=== PATIENT | male | born 2000 | race Caucasian/White ===

== ENCOUNTER 2019-05-06 12:10 | Emergency (ER) | payer OTHER, SELFPAY ==
[2019-05-06 12:13] VITALS: BP 133/68; PULSE 80; RESP 16; TEMP 36.8; O2SAT 98; BMI 29.5
[2019-05-06] MEDS: Diphth,Pertuss(Acell),Tet Vac 0.5 ML Vial IM (12:41)
--- NOTE | 2019-05-06 12:53 | ED.VISSUMM ---
- ER Visit Summary Date of Service: 05/06/19 Chief Complaint: [Head injury and forehead laceration] History of Present Illness: The patient is a 19 M [presents to the emergency department with head injury that occurred while at work today. Patient was using a large drill when the bit hit a nail in the wood and rotated the handle of the drill which struck him in the left temporal forehead. Patient denies loss of consciousness. He denies neck pain. He does have some mild discomfort over the area. Patient denies any visual changes. Patient unsure of his last tetanus.] Physical Examination: [HEENT-PERRLA, EOMI. Cranial nerves II through XII grossly intact. TMs clear. Mucous membranes moist. No adenopathy. She has a 3 cm laceration that is vertical in orientation over the left temporal forehead. No bony step-offs or depressions noted. Tympanum. Cardiovascular-regular rate and rhythm without murmur or ectopy Lungs-clear to auscultation, chest wall stable without crepitus or subcu emphysema Abdomen-normoactive bowel sounds, soft, nontender, no rebound or rigidity, no peritoneal signs. Extremities-intact ?4, normal range of motion, normal pulses, atraumatic] Test Results: [None indicated] Emergency Department Course and Treatment: [Laceration repair-wound sterilely draped and prepped. Wound cleansed with Shur-Clens and irrigated with copious saline. Using 1% lidocaine total of 4 cc used to anesthetize the area. Using 6-0 nylon a total of 5 single interrupted sutures placed with good wound edge approximation. Patient tired procedure well.] Treatment Plan: [Patient to have sutures removed in 5 to 7 days.] Disposition: [Discharged home in stable condition.] Impression: [Head injury Forehead laceration 3 cm-simple repair] This note was generated with [employer] dictation software. It may contain incorrect words, spelling, and punctuation that were not noted in review of the chart prior to signing ED Disposition - Plan for ED Patient: Referrals: Jaime Blanco MD [Primary Care Provider] -
--- NOTE | 2019-05-06 12:56 | DCINST.ED_ITS ---
ED Disposition - Plan for ED Patient: Instructions: LACERATION, Face (Suture or Tape), HEAD INJURY, No Wake-Up (Adult) Referrals: Jaime Blanco MD [Primary Care Provider] - [facility] [GROUP OF PHYSICIANS] - 7 Days for suture removal
== END 2019-05-06 13:12 | disposition home or self-care (01) ==
PROVIDERS: Emergency Provider Emergency Medicine; Family Provider Family Medicine; PCP Family Medicine
DX: S01.81XA Laceration without foreign body of other part of head, initial encounter (principal); W29.8XXA Contact with other powered hand tools and household machinery, initial encounter; Y93.89 Activity, other specified; Y92.89 Other specified places as the place of occurrence of the external cause; Y99.0 Civilian activity done for income or pay
CPT/HCPCS: 12013; 90471; 90715; 99283